=== PATIENT | male | born 1985 | race Asian ===

== ENCOUNTER 2016-05-21 19:49 | Emergency (ER) | payer OTHER ==
[2016-05-21 20:20] VITALS: BP 132/87
--- NOTE | 2016-05-21 20:55 | UC ---
Ear Complaint HPI - HPI Summary HPI Summary: Rapid onset L ear pain with difficulty hearing starting 2 nights ago. Took "1.5 days of amoxicillin and it felt better." Now pain is worse and pt has been feeling feverish. Denies nasal congestion, cough, hx of ear surgeries. - History of Current Complaint Chief Complaint: UCEar Stated Complaint: EAR PAIN Time Seen by Provider: 05/21/16 20:36 Hx Obtained From: Patient Onset/Duration: Sudden Onset, Lasting Days Severity Initially: Mild Severity Currently: Mild Alleviating Factors: Nothing Associated Signs/Symptoms: Positive: Hearing Loss. Negative: URI Symptoms - Allergies/Home Medications Allergies/Adverse Reactions: Allergies Allergy/AdvReac Type Severity Reaction Status Date / Time Lactose Intolerance (GI) Allergy Abdominal Verified 05/21/16 20:20 Pain Home Medications: Home Medications Amoxicillin CAP* 05/21/16 [History] PMH/Surg Hx/FS Hx/Imm Hx Previously Healthy: Yes - Surgical History Surgical History: None - Family History Known Family History: Positive: Other - No FHx of ebola - Social History Occupation: Student Alcohol Use: None Substance Use Type: None Smoking Status (MU): Never Smoked Tobacco Review of Systems Constitutional: Fatigue Skin: Negative Eyes: Negative ENT: Ear Ache Respiratory: Negative Cardiovascular: Negative Gastrointestinal: Negative Genitourinary: Negative Motor: Negative Neurovascular: Negative Musculoskeletal: Negative Neurological: Negative Psychological: Negative All Other Systems Reviewed And Are Negative: Yes Physical Exam Triage Information Reviewed: Yes Appearance: Well-Appearing, No Pain Distress, Well-Nourished Vital Signs: Initial Vital Signs Temp 98.2 F 05/21/16 20:18 Pulse 82 05/21/16 20:18 Resp 18 05/21/16 20:18 BP 132/87 05/21/16 20:18 Pulse Ox 99 05/21/16 20:18 Eye Exam: Normal Eyes: Positive: Conjunctiva Clear ENT Exam: Normal ENT: Positive: Normal ENT inspection, Hearing grossly normal, Pharynx normal, TMs normal. Negative: Nasal congestion, Nasal drainage, TM bulging, TM dull, TM red Dental Exam: Normal Neck exam: Normal Neck: Positive: Supple, Nontender, No Lymphadenopathy Respiratory Exam: Normal Respiratory: Positive: Chest non-tender, Lungs clear, Normal breath sounds, No respiratory distress, No accessory muscle use Cardiovascular Exam: Normal Cardiovascular: Positive: RRR, No Murmur Neurological Exam: Normal Neurological: Positive: Alert Psychological Exam: Normal Skin Exam: Normal Ear Complaint Course/Dx - Differential Dx/Diagnosis Provider Diagnoses: Eustachian tube dysfunction. L otalgia Discharge - Discharge Plan Condition: Stable Disposition: HOME Patient Education Materials: Eustachian Tube Dysfunction (GEN) Referrals: [facility] NERI Rosen [Primary Care Provider] - If Needed Additional Instructions: Rapid strep negative. Your ear pain is from the pressure difference between the outside and your middle ear space. While this can be uncomfortable, this is NOT FROM INFECTION, and antibiotics are NOT the correct treatment. In almost all cases, simply waiting for a week or two is the only thing to do. If you develop fever over 100F, increasing steady pain, or drainage from the ear, please return here.
== END 2016-05-21 21:10 | disposition home or self-care (01) ==
LOC: UCEAST 19:49
DX: H69.92 Unspecified Eustachian tube disorder, left ear (principal); H92.02 Otalgia, left ear
CPT/HCPCS: 87651; 99201; G0463

== ENCOUNTER 2017-06-03 20:15 | Emergency (ER) | payer OTHER | END 2017-06-03 20:39 | disposition left against medical advice (07) | LOC: UCEAST 20:15 | DX: R10.9 Unspecified abdominal pain (principal); Z53.21 Procedure and treatment not carried out due to patient leaving prior to being seen by health care provider ==

== ENCOUNTER 2017-06-03 20:58 | Emergency (ER) | payer OTHER ==
[2017-06-03 21:13] VITALS: BP 135/89
[2017-06-03 22:25] LABS: ABS Basophils 0 10^3/ul (0-0.2); ABS Eosinophils 0.2 10^3/ul (0-0.6); ABS Lymphocytes 1.6 10^3/ul (1.0-4.8); ABS Monocytes 0.4 10^3/ul (0-0.8); ABS Neutrophils 5.6 10^3/ul (1.5-7.7); ABS Nucleated RBC 0 10^3/ul; Eosinophil % 2.6 % (0-6); Hematocrit 40 % (42-52); Hemoglobin 13.3 g/dl (14.0-18.0); Lymphocyte % 20.5 % (25-47); Mean Corpuscular HGB Conc 34 g/dl (31-36); Mean Corpuscular Hemoglobin 29 pg (27-31); Mean Corpuscular Volume 86 fL (80-94); Mean Platelet Volume 9 um3 (7.4-10.4); Nucleated Red Blood Cells % 0; Platelet Count 190 10^3/ul (150-450); Red Blood Count 4.58 10^6/ul (4.0-5.4); Red Cell Distribution Width 14 % (10.5-15); White Blood Count 7.9 10^3/ul (3.5-10.8)
[2017-06-03 22:35] LABS: EGFR Non-African American 99.1 (>60)
[2017-06-03] MEDS ORDERED: Iohexol 300* (CONTRAST) 10 ML SDV IV ONE (22:46)
--- NOTE | 2017-06-04 11:00 | RAD ---
CLINICAL HISTORY: Periumbilical and abdominal pain. COMPARISON: None TECHNIQUE: Contrast enhanced CT examination of the abdomen and pelvis from the lung bases through the initial tuberosities. The patient received 80 mL Omnipaque 300 intravenously prior to imaging.The patient received oral contrast as well prior to imaging. FINDINGS: VISUALIZED LUNG BASES: The visualized lung bases are grossly clear. There is no pleural effusion. ABDOMEN AND PELVIS: The liver, spleen, pancreas and adrenal glands are grossly normal in appearance. The gallbladder is normal. The kidneys are normal in appearance without focal mass, calcification or signs of hydronephrosis. The oral contrast has progressed as far as the base of the cecum which limits evaluation of the colon. The small and large bowel are not distended. The diminutive and partially gas-filled appendix is likely identified best on axial image 58 and does not exhibit any signs of acute inflammatory change. The gas and stool-filled colon does not exhibit any signs of focal inflammatory change or obstruction. There is no gross retroperitoneal or mesenteric lymphadenopathy. The pelvic viscera is normal in appearance. The abdominal aorta and iliac arteries are normal in course and diameter. There are no sinister bone lesions. IMPRESSION: Normal CT examination.
--- NOTE | 2017-06-05 16:50 | ED ---
Helen Joshua Emily, scribed for Jono Castillo MD on 06/03/17 at 2141 . Abdominal Pain/Male - HPI Summary HPI Summary: This patient is a 32 year old M referred to [facility] by convenient care with a chief complaint of RLQ abd pain that began yesterday. The patient rates the pain 0/10 in severity. Symptoms aggravated by eating. Symptoms alleviated by nothing. Patient reports chills. Patient denies nausea, vomiting, diarrhea, and fever. Patient reports having similar symptoms and being diagnosed with appendicitis several years ago, however refused tx at that time. - History of Current Complaint Chief Complaint: EDAbdPain Stated Complaint: ABD PAIN Time Seen by Provider: 06/03/17 21:32 Hx Obtained From: Patient Onset/Duration: Sudden Onset, Lasting Days, Still Present Timing: Constant Severity Initially: Mild Severity Currently: Mild Pain Intensity: 0 Pain Scale Used: 0-10 Numeric Location: Discrete At: RLQ Aggravating Factor(s): Food Alleviating Factor(s): Nothing Associated Signs And Symptoms: Positive: Other - Positive chills. Negative nausea, vomiting, diarrhea, and fever - Allergies/Home Medications Allergies/Adverse Reactions: Allergies Allergy/AdvReac Type Severity Reaction Status Date / Time MS Lactose Intolerance (GI) Allergy Abdominal Verified 06/03/17 21:13 [Lactose Intolerance (GI)] Pain PMH/Surg Hx/FS Hx/Imm Hx Previously Healthy: No GI History: Reports: Other GI Disorders - Positive appendicitis Opthamlomology History: Denies: Hx Legally Blind Infectious Disease History: No Infectious Disease History: Denies: Traveled Outside the [place] in Last 30 Days - Family History Known Family History: Positive: Other - No FHx of ebola - Social History Occupation: Employed Full-time Lives: Alone Alcohol Use: None Substance Use Type: Reports: None Smoking Status (MU): Never Smoked Tobacco Review of Systems Positive: Chills. Negative: Fever Positive: Abdominal Pain. Negative: Vomiting, Diarrhea, Nausea All Other Systems Reviewed And Are Negative: Yes Physical Exam - Summary Physical Exam Summary: Appearance: Well-appearing, no distress, Well-nourished Skin: Warm, color reflects adequate perfusion Head: Normal Head/Face inspection Eyes: Conjunctiva clear ENT: Normal inspection Neck: Supple, no nodes, no JVD. Respiratory: Lungs clear, Normal breath sounds, no respiratory distress Cardio: RRR, No murmur, pulses normal, brisk capillary refill Abdomen: soft, nontender, no guarding, no rebound, no McBurney's point tenderness Bowel sounds: present Musculoskeletal: Strength Intact/ ROM intact. No calf tenderness. No edema. Neuro: Alert, muscle tone normal, facial symmetry, speech normal, sensory/motor intact Psychological: Normal Triage Information Reviewed: Yes Vital Signs On Initial Exam: Initial Vitals Temp Pulse Resp BP Pulse Ox 98.8 F 70 16 135/89 99 06/03/17 21:05 06/03/17 21:05 06/03/17 21:05 06/03/17 21:05 06/03/17 21:05 Vital Signs Reviewed: Yes Diagnostics - Vital Signs Vital Signs Temp Pulse Resp BP Pulse Ox 06/03/17 21:05 98.8 F 70 16 135/89 99 - Laboratory Lab Results: Lab Results 06/03/17 06/03/17 Range/Units 22:00 22:00 WBC 7.9 (3.5-10.8) 10^3/ul RBC 4.58 (4.0-5.4) 10^6/ul Hgb 13.3 L (14.0-18.0) g/dl Hct 40 L (42-52) % MCV 86 (80-94) fL MCH 29 (27-31) pg MCHC 34 (31-36) g/dl RDW 14 (10.5-15) % Plt Count 190 (150-450) 10^3/ul MPV 9 (7.4-10.4) um3 Neut % (Auto) 71.2 (38-83) % Lymph % (Auto) 20.5 L (25-47) % Mclennan % (Auto) 5.3 (0-7) % Eos % (Auto) 2.6 (0-6) % Baso % (Auto) 0.4 (0-2) % Absolute Neuts (auto) 5.6 (1.5-7.7) 10^3/ul Absolute Lymphs (auto) 1.6 (1.0-4.8) 10^3/ul Absolute Monos (auto) 0.4 (0-0.8) 10^3/ul Absolute Eos (auto) 0.2 (0-0.6) 10^3/ul Absolute Basos (auto) 0 (0-0.2) 10^3/ul Absolute Nucleated RBC 0 10^3/ul Nucleated RBC % 0 Sodium 140 (133-145) mmol/L Potassium 3.6 (3.5-5.0) mmol/L Chloride 106 (101-111) mmol/L Carbon Dioxide 29 (22-32) mmol/L Anion Gap 5 (2-11) mmol/L BUN 10 (6-24) mg/dL Creatinine 0.90 (0.67-1.17) mg/dL Est GFR ( Amer) 127.4 (>60) Est GFR (Non-Af Amer) 99.1 (>60) BUN/Creatinine Ratio 11.1 (8-20) Glucose 96 (70-100) mg/dL Calcium 9.3 (8.6-10.3) mg/dL Total Bilirubin 0.30 (0.2-1.0) mg/dL AST 16 (13-39) U/L ALT 12 (7-52) U/L Alkaline Phosphatase 64 (34-104) U/L Total Protein 7.1 (6.4-8.9) g/dL Albumin 4.5 (3.2-5.2) g/dL Globulin 2.6 (2-4) g/dL Albumin/Globulin Ratio 1.7 (1-3) Lipase 14 (11.0-82.0) U/L Result Diagrams: 06/03/17 22:00 06/03/17 22:00 Lab Statement: Any lab studies that have been ordered have been reviewed, and results considered in the medical decision making process. - CT CT Abdomen and Pelvis CT Interpretation Completed By: Radiologist - CT abdomen and pelvis reveals, per radiologist, no acute findings. ED physician has reviewed this radiology report. Re-Evaluation - Re-Evaluation First Eval Re-Evaluation Time: 00:14 Change: Unchanged - pt continues to be asymptomatic. Pt repeat abdominal exam nontender with no RLQ pain. pt tolerating po without difficulty. Abdominal Pain Fem Course/Dx - Course Assessment/Plan: pt with negative abdominal pain w/u in the ED. pt with negative evaluaiton for appendicitis. pt symptoms likely secondary to gastritis vs enteritis. Plan for symptomatic tx with f/u in clinic as needed. - Diagnoses Differential Diagnosis/HQI/PQRI: Appendicitis, Bowel Obstruction, Constipation, Diverticulitis, Gall Bladder Disease, Ischemic Bowel, Pancreatitis, Ureteral Stone, Urinary Tract Infection Provider Diagnoses: Abdominal pain Discharge - Discharge Plan Condition: Improved Disposition: HOME Patient Education Materials: Acute Abdominal Pain (ED) Referrals: [facility] - Bharat OLIVERA [Medical Doctor] - 3 Days No Primary Care Phys,NOPCP [Primary Care Provider] - The documentation as recorded by the Helen patel Emily accurately reflects the service I personally performed and the decisions made by , Jono Castillo MD.
== END 2017-06-04 00:52 | disposition home or self-care (01) ==
LOC: ED 20:58
DX: R10.31 Right lower quadrant pain (principal)
CPT/HCPCS: 36415; 74177; 80053; 83690; 85025; 99282; Q9967